=== PATIENT | male | born 1960 | race Caucasian/White ===

== ENCOUNTER → 2016-11-06 | Outpatient (CLI) | payer OTHER ==
[~2016-11-06] MED LIST: CHOL100010 PO; CHOND PO; GLUCOSAMIN PO; OMEG120013 OR
[2016-11-06 17:51] LABS: BASO % 0.1 %; BASO ABS # 0.01 K/uL (0-0.2); COMPLETE YES; EOS % 0.2 %; HEMATOCRIT 44.8 % (42-52); IG% 0.2 %; LYMPH % 13.1 %; LYMPH ABS # 1.12 K/uL (1.2-3.4); MEAN CELL VOLUME 87.2 fL (80-100); MEAN CORPUSCULAR HEMOGLOBIN 31.3 pg (25-34); MEAN CORPUSCULAR HGB CONC 35.9 g/dl (32-36); MEAN PLATELET VOLUME 9.9 fL (7.4-10.4); MONO % 5.8 %; NEUT % 80.6 %; PLATELET COUNT 265 K/uL (130-400); RED BLOOD COUNT 5.14 M/uL (4.7-6.1); WHITE BLOOD COUNT 8.57 K/uL (4.8-10.8)
[2016-11-06 18:12] LABS: BLOOD UREA NITROGEN 13 mg/dl (7-18); CALCIUM 9.3 mg/dl (8.5-10.1); CARBON DIOXIDE 29 mmol/L (21-32); CHLORIDE 97 mmol/L (98-107); GLUCOSE 199 mg/dl (70-99); POTASSIUM 3.9 mmol/L (3.5-5.1); SODIUM 135 mmol/L (136-145)
[2016-11-06 18:25] LABS: ALB/GLOB RATIO 0.9 (0.9-2); ALKALINE PHOSPHATASE 90 U/L (45-117); ALT/SGPT 36 U/L (12-78); AST/SGOT 15 U/L (15-37); CHOLESTEROL 178 mg/dl (0-200); CHOLESTEROL/HDL RATIO 3.9; HDL CHOLESTEROL 46 mg/dl; LDL CHOLESTEROL CALCULATED 80 mg/dl; PROSTATE SPECIFIC ANTIGEN 0.876 ng/ml (0.000-4.000); THYROID STIMULATING HORMONE 0.827 uIu/ml (0.300-4.500); TRIGLYCERIDES 260 mg/dl (0-150); VERY LOW DENSITY LIPOPROT CALC 52 mg/dl
== END | disposition home or self-care (01) ==
LOC: C.LABPBG 15:09
PROVIDERS: ATTEND Neuromusculoskeletal Medicine & OMM
DX: Z00.00 Encounter for general adult medical examination without abnormal findings (principal)